=== PATIENT | female | born 1945 | race Caucasian/White ===

== ENCOUNTER 2018-08-21 11:19 | Emergency (ER) | payer OTHER, MEDICAID ==
[~2018-08-21] VITALS: Ht 160 cm; Wt 67.0 kg
[2018-08-21 12:02] LABS: BASOPHILS % 0.7 % (0.0-2.0); EOSINOPHILS % 1.1 % (0.0-5.0); HEMATOCRIT. 38.7 % (36.0-48.0); HEMOGLOBIN. 13.4 g/dL (12.0-16.0); LYMPHOCYTES % 22.3 % (20.0-50.0); MEAN CORPUSCULAR HEMOGLOBIN 30.3 pg (28.0-32.0); MEAN CORPUSCULAR VOLUME 87.6 fL (81.0-99.0); MEAN PLATELET VOLUME 9.8 fl (7.4-10.4); MONOCYTES % 7.7 % (2.0-8.0); NEUTROPHILS % 68.2 % (40.0-76.0); PLATELET 168 x1000/uL (130-400); RED BLOOD CELL COUNT 4.42 mill/uL (4.2-5.4); RED CELL DISTRIBUTION WIDTH 13.2 % (11.6-14.6)
[2018-08-21 12:05] LABS: CHLORIDE 111 mEq/L (98-107)
[2018-08-21 15:17] VITALS: BP 109/63
[2018-08-27] MEDS ORDERED: METF500T6 MT (12:06)
== END 2018-08-21 15:36 | disposition short-term general hospital (02) ==
LOC: ER 12:49 → ENRESERV 14:53 → CANRESERV 14:53 → CANBEDREQ 15:02 → ER 15:36
DX: R07.89 Other chest pain (principal); J45.909 Unspecified asthma, uncomplicated; I25.10 Atherosclerotic heart disease of native coronary artery without angina pectoris; E11.9 Type 2 diabetes mellitus without complications; K21.9 Gastro-esophageal reflux disease without esophagitis; I10 Essential (primary) hypertension; I25.2 Old myocardial infarction; Z95.5 Presence of coronary angioplasty implant and graft; Z87.891 Personal history of nicotine dependence; Z88.0 Allergy status to penicillin
CPT/HCPCS: 36415; 71045; 71250; 80053; 83880; 84484; 85025; 93005; 99285

== ENCOUNTER 2018-08-26 22:37 | Inpatient (IN) | payer OTHER, MEDICAID ==
[~2018-08-26] VITALS: Ht 167.6 cm; Wt 56.7 kg
[2018-08-26] MEDS ORDERED: ASPIRIN 81MG TABLET PO ONE (23:30)
[2018-08-27] MEDS: NITROGLYCERIN 0.4MG TABLET SL SL PRN ×2 (00:16→00:38)
[2018-08-27 01:29] LABS: BASOPHILS % 0.4 % (0.0-2.0); EOSINOPHILS % 1.7 % (0.0-5.0); HEMATOCRIT. 36.4 % (36.0-48.0); HEMOGLOBIN. 12.7 g/dL (12.0-16.0); LYMPHOCYTES % 13.7 % (20.0-50.0); MEAN CORPUSCULAR HEMOGLOBIN 30.5 pg (28.0-32.0); MEAN CORPUSCULAR VOLUME 87.5 fL (81.0-99.0); MEAN PLATELET VOLUME 10.4 fl (7.4-10.4); MONOCYTES % 7.1 % (2.0-8.0); NEUTROPHILS % 77.1 % (40.0-76.0); PLATELET 213 x1000/uL (130-400); RED BLOOD CELL COUNT 4.16 mill/uL (4.2-5.4); RED CELL DISTRIBUTION WIDTH 12.7 % (11.6-14.6)
[2018-08-27 01:30] LABS: CHLORIDE 105 mEq/L (98-107)
[2018-08-27] MEDS ORDERED: MORPHINE SULFATE 2 MG/ML CPJ (NOT FOR IM USE) IV ONE (01:30)
[2018-08-27] MEDS ORDERED: ONDANSETRON HCL 4MG/2ML INJ IV PRN (11:15)
[2018-08-27] MEDS ORDERED: ACETAMINOPHEN 325MG TABLET PO PRN (11:15)
[2018-08-27] MEDS ORDERED: MAGNESIUM/ALUMINUM HYDROXIDE/SIMETHICONE 30ML UDC PO PRN (11:15)
[2018-08-27] MEDS ORDERED: IPRATROPIUM/ALBUTEROL 0.5-3(2.5)MG/3ML NEB INH PRN (11:15)
[2018-08-27] MEDS ORDERED: CLONIDINE 0.1MG TABLET PO PRN (11:15)
[2018-08-27 11:56] VITALS: BP 125/68
[2018-08-27] MEDS ORDERED: ASPI-986 MT (12:06)
[2018-08-27] MEDS ORDERED: OMEP10CA4 MT (12:06)
[2018-08-27] MEDS ORDERED: ATOR10TA MT (12:06)
[2018-08-27] MEDS ORDERED: METF-414 MT (12:06)
[2018-08-27] MEDS ORDERED: LISI2.5T47 MT (12:06)
[2018-08-27] MEDS ORDERED: GLIP5TAB12 MT (12:06)
[2018-08-27 12:30] VITALS: BP 142/73
[2018-08-27] MEDS: GUAIFENESIN/DM 600MG/30MG ER TAB 12HR PO SCH ×2 (12:41→23:39)
[2018-08-27] MEDS: LISINOPRIL 2.5MG TABLET PO SCH (12:41)
[2018-08-27] MEDS ORDERED: DEXTROSE 50% WATER 50ML SYRINGE IV PRN (12:45)
[2018-08-27] MEDS: SODIUM CHLORIDE 0.9% INJ 3ML FLUSH IVF SCH ×2 (14:09→21:50)
[2018-08-27] MEDS: TRAMADOL 50MG TABLET PO PRN (15:52)
[2018-08-27 16:00] VITALS: BP 123/71
[2018-08-27] MEDS ORDERED: MORPHINE SULFATE 4 MG/ML CPJ (NOT FOR IM USE) IV PRN (16:00)
[2018-08-27] MEDS: BLOOD SUGAR DIAGNOSTIC STRIP TEST SCH ×2 (17:17→21:50)
[2018-08-27] MEDS: BENZONATATE 100MG CAPSULE PO SCH ×2 (17:25→21:49)
[2018-08-27] MEDS: METFORMIN HCL 500MG TABLET PO SCH (17:25)
[2018-08-27 18:35] LABS: CLARITY URINE CLEAR (CLEAR); COLOR URINE YELLOW (YELLOW); KETONES URINE 1+ (NEGATIVE); LEUKOCYTE ESTERASE URINE NEGATIVE (NEGATIVE); NITRITE URINE NEGATIVE (NEGATIVE); OCCULT BLOOD URINE TRACE (NEGATIVE); PROTEIN URINE TRACE (NEGATIVE); SPECIFIC GRAVITY URINE 1.023 (1.005-1.030)
[2018-08-27 18:53] LABS: *AMPHETAMINES SCREEN URINE NEGATIVE (NEGATIVE); *BARBITURATES SCREEN URINE NEGATIVE (NEGATIVE); *BENZODIAZEPINES SCREEN URINE NEGATIVE (NEGATIVE); *COCAINE SCREEN URINE NEGATIVE (NEGATIVE); CANNABINOID URINE SCREEN NEGATIVE (NEGATIVE); METHADONE URINE SCREEN NEGATIVE (NEGATIVE); OPIATES URINE SCREEN PRESUMTIVE POSITIVE (NEGATIVE); PHENCYCLIDINE URINE SCREEN NEGATIVE (NEGATIVE)
[2018-08-27] MEDS ORDERED: ATORVASTATIN CALCIUM 10MG TABLET PO SCH (21:00)
[2018-08-28] VITALS (7 sets, daily range): BP systolic 129–147; BP diastolic 69–87
[2018-08-28] MEDS: METFORMIN HCL 500MG TABLET PO SCH ×2 (06:18→17:44)
[2018-08-28] MEDS: BLOOD SUGAR DIAGNOSTIC STRIP TEST SCH ×3 (06:18→17:44)
[2018-08-28] MEDS: BENZONATATE 100MG CAPSULE PO SCH ×2 (06:18→17:44)
[2018-08-28] MEDS: SODIUM CHLORIDE 0.9% INJ 3ML FLUSH IVF SCH ×2 (06:19→13:39)
[2018-08-28] MEDS ORDERED: PANTOPRAZOLE 40MG DR TABLET PO SCH (06:45)
[2018-08-28 07:03] LABS: HEMOGLOBIN 13.6 g/dL (12.0-16.0); MEAN CORPUSCULAR HEMOGLOBIN 29.8 pg (28.0-32.0); MEAN CORPUSCULAR VOLUME 87.4 fL (81.0-99.0); PLATELET 251 x1000/uL (130-400); RED BLOOD CELL COUNT 4.58 mill/uL (4.2-5.4); RED CELL DISTRIBUTION WIDTH 12.8 % (11.6-14.6)
[2018-08-28 07:53] LABS: CHLORIDE 96 mEq/L (98-107)
[2018-08-28] MEDS: LISINOPRIL 2.5MG TABLET PO SCH (09:21)
[2018-08-28] MEDS: GUAIFENESIN/DM 600MG/30MG ER TAB 12HR PO SCH (12:43)
[2018-08-28] MEDS: TRAMADOL 50MG TABLET PO PRN (12:49)
[2018-08-28] MEDS ORDERED: TRAM50TA3 PO (14:52)
[2018-08-28] MEDS ORDERED: BENZ100C86 PO (14:52)
[2018-08-28] MEDS ORDERED: GUAI-741 PO (14:52)
[2018-08-28] MEDS ORDERED: LEVO750T21 PO (14:56)
== END 2018-08-28 19:56 | disposition home or self-care (01) | DRG 189 ==
LOC: ER 22:37 → 5WST 08-27 01:49 → EDBEDREQTM 08-27 06:28 → ENRESERV 08-27 09:14 → 5WST 08-27 10:30
PROVIDERS: ADMIT Family Medicine Adult Medicine; ATTEND Family Medicine Adult Medicine
DX: J96.00 Acute respiratory failure, unspecified whether with hypoxia or hypercapnia (principal); E78.5 Hyperlipidemia, unspecified; E11.9 Type 2 diabetes mellitus without complications; I10 Essential (primary) hypertension; K21.9 Gastro-esophageal reflux disease without esophagitis; Z79.84 Long term (current) use of oral hypoglycemic drugs; Z82.49 Family history of ischemic heart disease and other diseases of the circulatory system; Z83.3 Family history of diabetes mellitus; Z87.891 Personal history of nicotine dependence; Z88.0 Allergy status to penicillin; Z79.1 Long term (current) use of non-steroidal anti-inflammatories (NSAID); Z79.82 Long term (current) use of aspirin; Z79.899 Other long term (current) drug therapy; J06.9 Acute upper respiratory infection, unspecified; R07.89 Other chest pain
CPT/HCPCS: 36415; 71045; 80305; 82962; 83880; 84484; 85027; 85379; 87070; 87804; 93005; 96374; 99285; J2270

== ENCOUNTER 2025-01-10 23:24 | Emergency (ER) | payer OTHER, MEDICAID ==
[~2025-01-10] VITALS: Ht 165.1 cm; Wt 66.0 kg
[~2025-01-10 23:24] MED LIST: ASPI-986 MT; ATOR10TA MT; BENZ100C86 PO; GLIP5TAB22 MT; GUAI-741 PO; LEVO750T21 PO; LISI2.5T47 MT; METF-414 MT; OMEP10CA5 MT; TRAM50TA3 PO
[2025-01-10 23:32] VITALS: O2SAT 100
[2025-01-11 00:08] LABS: BASOPHILS % 0.3 % (0.0-2.0); EOSINOPHILS % 1.7 % (0.0-5.0); HEMATOCRIT. 42.9 % (36.0-48.0); HEMOGLOBIN. 14.9 g/dL (12.0-16.0); LYMPHOCYTES % 18.3 % (20.0-50.0); MEAN CORPUSCULAR HEMOGLOBIN 31.1 pg (28.0-32.0); MEAN CORPUSCULAR HGB CONC 34.7 g/dL (31.0-37.0); MEAN CORPUSCULAR VOLUME 89.6 fL (81.0-99.0); MONOCYTES % 6.2 % (2.0-8.0); NEUTROPHILS % 73.5 % (40.0-76.0); PLATELET 125 x1000/uL (130-400); RED BLOOD CELL COUNT 4.79 mill/uL (4.2-5.4); WHITE BLOOD COUNT 8.9 x1000/uL (4.5-11.0)
[2025-01-11] MEDS: HYDRALAZINE 20MG/ML VIAL IV ONE (00:11)
[2025-01-11 00:14] LABS: CHLORIDE 104 mEq/L (98-107); POTASSIUM 3.9 mEq/L (3.5-5.1); SODIUM 142 mEq/L (136-145)
[2025-01-11 00:15] LABS: CALCIUM 9.8 mg/dL (8.7-10.4); CARBON DIOXIDE 30 mEq/L (21-32)
[2025-01-11 00:20] LABS: CREATININE 0.7 mg/dL (0.6-1.0); GLUCOSE 195 mg/dL (70-105); UREA NITROGEN BLOOD 21 mg/dL (9-23)
[2025-01-11 00:41] LABS: TROPONIN I HIGH SENSITIVITY < 4 ng/L (3.0-34)
[2025-01-11 01:19] LABS: CLARITY URINE CLEAR (CLEAR); COLOR URINE YELLOW (YELLOW); GLUCOSE URINE TRACE (NEGATIVE); KETONES URINE NEGATIVE (NEGATIVE); LEUKOCYTE ESTERASE URINE TRACE (NEGATIVE); NITRITE URINE NEGATIVE (NEGATIVE); OCCULT BLOOD URINE TRACE (NEGATIVE); PROTEIN URINE NEGATIVE (NEGATIVE); SPECIFIC GRAVITY URINE 1.024 (1.005-1.030)
[2025-01-11 01:48] LABS: SQUAMOUS EPITHELIAL CELL URINE FEW /lpf (RARE/1+)
[2025-01-11 01:50] LABS: RBC URINE 0-2 /hpf (0-2)
[2025-01-11 01:52] LABS: BACTERIA URINE TRACE
[2025-01-11 03:38] LABS: TROPONIN I HIGH SENSITIVITY < 4 ng/L (3.0-34)
[2025-01-11 04:15] VITALS: BP 117/74; PULSE 80; RESP 15; TEMP 36.6; O2SAT 15
== END 2025-01-11 04:15 | disposition short-term general hospital (02) ==
LOC: ER 23:24
DX: I10 Essential (primary) hypertension (principal); I67.4 Hypertensive encephalopathy; E11.9 Type 2 diabetes mellitus without complications; E78.00 Pure hypercholesterolemia, unspecified; Z79.82 Long term (current) use of aspirin; Z79.84 Long term (current) use of oral hypoglycemic drugs; Z79.899 Other long term (current) drug therapy; Z88.0 Allergy status to penicillin; Z20.822 Contact with and (suspected) exposure to COVID-19
CPT/HCPCS: 36415; 71045; 80048; 81003; 83605; 84484; 85025; 87426; 99285